=== PATIENT | male | born 1950 | race Caucasian/White ===

== ENCOUNTER 2018-08-12 20:33 | Inpatient (IN) | payer OTHER, MEDICARE ==
--- NOTE | 2018-08-12 21:02 | ED ---
Chest Pain HPI - General Chief Complaint: Chest Pain Stated Complaint: Chest Pain Time Seen by Provider: 08/12/18 20:44 Source: patient, family Mode of arrival: wheelchair Limitations: no limitations - History of Present Illness Initial Comments: Pamela a 68-year-old gentleman with a history of hypertension who presents to the emergency department today for evaluation of chest pain that occurred earlier in the day. Patient reports that between 4:30 and 5 PM this afternoon he was putting one in the wood stove. Patient reports that after lifting a piece of wood he felt a dull pain in his chest radiating down his left arm. He reports that this was unlike any muscular pain he has ever experienced. Patient describes it as a discomfort in his chest. He reports it was 1 the worse pains he's ever experienced. Patient went in the house took 2 Advil and laid down. At that time the pain resolved. When his returned home he told her about the pain and she insisted that he come to the ER for evaluation. Upon her arrival the patient is chest pain-free. Patient reports the pain occurred with exertion, is pressure-like, radiated down the left arm, was associated with lightheadedness but no shortness of breath or diaphoresis. She has a history of hypertension. No known history of coronary artery disease. He does report these undergone a thorough cardiovascular workup in the distant past including stress test and catheterization in which she was told some of his smaller vessels were "kinked" but he did not have any intervention at that time. - Related Data Home Medications Medication Instructions Recorded Confirmed Allopurinol [Zyloprim] 300 mg PO DAILY 08/12/18 08/12/18 Clonidine (Unknown) 1 tab PO ONCE 08/12/18 Ibuprofen [Advil] 400 mg PO Q8HR 08/12/18 08/12/18 Indomethacin [Indocin] 50 mg PO TID 08/12/18 08/12/18 Lisinopril 20 mg PO DAILY 08/12/18 08/12/18 Metoprolol (Unknown) 1 tab PO ONCE 08/12/18 Multivitamins, Thera [Multivitamin 1 tab PO DAILY 08/12/18 08/12/18 (formulary)] Niacin [Slo-Niacin] 500 mg PO BID 08/12/18 08/12/18 Pravastatin Sodium [Pravachol] 80 mg PO HS 08/12/18 08/12/18 amLODIPine [Norvasc] 5 mg PO TID 08/12/18 08/12/18 glipiZIDE [Glucotrol] 10 mg PO BID 08/12/18 08/12/18 metFORMIN HCL 1,000 mg PO BID 08/12/18 08/12/18 Allergies Allergy/AdvReac Type Severity Reaction Status Date / Time No Known Allergies Allergy Verified 08/12/18 21:28 Review of Systems ROS Statement: Those systems with pertinent positive or pertinent negative responses have been documented in the HPI. ROS Other: All systems not noted in ROS Statement are negative. EKG Findings - EKG Comments: EKG Findings:: EKG obtained at 8:51 PM, rate is 80, rhythm is sinus, there is a right bundle branch block, W[place] is 148, QRS 140, QTC 484. No acute ST elevations or depressions no evidence of acute ischemia or infarction. Past Medical History Past Medical History: Hypertension History of Any Multi-Drug Resistant Organisms: None Reported Past Surgical History: Tonsillectomy Past Psychological History: No Psychological Hx Reported Smoking Status: Never smoker Past Alcohol Use History: None Reported Past Drug Use History: None Reported General Exam - General Exam Comments Initial Comments: Physical Exam GENERAL: Patient is well-developed and well-nourished. Patient is nontoxic and well- hydrated and is in no distress. HENT: Normocephalic, Atraumatic. Poor dentition EYES: PERRL, EOMI PULMONARY: Unlabored respirations. No audible rales rhonchi or wheezing was noted. CARDIOVASCULAR: There is a regular rate and rhythm without any murmurs gallops or rubs. Warm and well-perfused extremity, radial pulses strong and equal bilaterally ABDOMEN: Soft and nontender with normal bowel sounds. No pulsatile abdominal mass SKIN: Skin is clear with no lesions or rashes and otherwise unremarkable. : Deferred NEUROLOGIC: Patient is alert and oriented x3. Moving all extremities spontaneously MUSCULOSKELETAL: Normal extremities with adequate strength and full range of motion. No lower extremity swelling or edema. No calf tenderness. PSYCHIATRIC: Normal psychiatric evaluation. Limitations: no limitations Limitations: no limitations Course Vital Signs 08/12/18 08/12/18 20:38 21:36 Temperature 97.9 F Pulse Rate 88 73 Respiratory 20 20 Rate Blood Pressure 165/93 152/99 O2 Sat by Pulse 97 96 Oximetry Chest Pain MDM - MDM The patient was seen and evaluated history was obtained from the patient and family at bedside [id number] male with a history of hypertension who presents with exertional chest pain occurring earlier in the day. Pain resolved with rest. This history is concerning for cardiac etiology of pain. A cardiac workup was ordered. EKG with no acute findings Labs reveal hyperglycemia, troponin is minimally elevated but still within normal limits at this time I recommend that we continue trending troponin, place the patient in observation for continued monitoring with a consult cardiology. Patient is agreeable to this plan. Admission orders were placed. Disposition Clinical Impression: Chest pain Disposition: ADMITTED IP TO THIS HOSP
[2018-08-12] MEDS ORDERED: ASPIRIN 81 MG PO STA (21:21)
[2018-08-12 21:26] LABS: Basophils % (A) 1 %; Eosinophils # (A) 0.2 k/uL (0-0.7); Eosinophils % (A) 2 %; HCT 44.5 % (39.0-53.0); HGB 14.7 gm/dL (13.0-17.5); Lymphocytes # (A) 2.1 k/uL (1.0-4.8); Lymphocytes % (A) 22 %; MCH 30.3 pg (25.0-35.0); Mean Platelet Volume 7.1; Monocytes # (A) 0.4 k/uL (0-1.0); Monocytes % (A) 5 %; Neutrophils # (A) 6.7 k/uL (1.3-7.7); Neutrophils % (A) 70 %; Platelet Count 293 k/uL (150-450); RBC 4.83 m/uL (4.30-5.90); RDW 12.9 % (11.5-15.5); WBC 9.6 k/uL (3.8-10.6)
[2018-08-12 21:37] LABS: ALT 30 U/L (21-72); AST 31 U/L (17-59); Albumin 4.2 g/dL (3.5-5.0); Alkaline Phosphatase 100 U/L (38-126); Anion Gap 11 mmol/L; Blood Urea Nitrogen 20 mg/dL (9-20); Calcium 9.9 mg/dL (8.4-10.2); Carbon Dioxide 26 mmol/L (22-30); Chloride 101 mmol/L (98-107); Glucose 281 mg/dL (74-99); Magnesium 1.4 mg/dL (1.6-2.3); Partial Thromboplastin Time 24.4 sec (22.0-30.0); Potassium 4.4 mmol/L (3.5-5.1); Prothrombin Time 10.2 sec (9.0-12.0); Sodium 138 mmol/L (137-145); Total Bilirubin 0.4 mg/dL (0.2-1.3); Total Protein 7.8 g/dL (6.3-8.2)
--- NOTE | 2018-08-12 21:40 | XR ---
EXAMINATION TYPE: XR chest 2V DATE OF EXAM: 08/12/2018 COMPARISON: None HISTORY: Chest pain TECHNIQUE: Frontal and lateral views of the chest are obtained. FINDINGS: There is no heart failure nor confluent pneumonic infiltrate. Costophrenic angles are jony r. There are chest leads. Heart size is normal. There is 1 cm nodular density over the right mid lung field. This is relatively dense and could be a granuloma. IMPRESSION: Right pulmonary nodular density could be a granuloma. Normal heart. No pulmonary consoli dation or heart failure. Recommend comparison with old exam. The old exam of 01/23/1711 is not availab le for comparison.
[2018-08-12 21:53] LABS: Creatine Kinase MB 0.6 ng/mL (0.0-2.4); Troponin I 0.031 ng/mL (0.000-0.034)
[2018-08-12] MEDS ORDERED: NITROGLYCERIN SL TABS 0.4 MG TAB SUBLINGUAL PRN (22:10)
[2018-08-12] MEDS ORDERED: Magnesium Replacement Protocol 1 EACH MISC MISCELLANE PRN (23:35)
[2018-08-12] MEDS: MAGNESIUM SULFATE-D5W PMX 1 GM in DEXTROSE/WATER 1 100ML.BAG IVPB SCH (23:42)
[2018-08-13] MEDS: MAGNESIUM SULFATE-D5W PMX 1 GM in DEXTROSE/WATER 1 100ML.BAG IVPB SCH ×2 (00:39→02:08)
[2018-08-13 02:14] LABS: Hemoglobin A1C 7.4 % (4.0-6.0)
[2018-08-13 03:43] LABS: Cholesterol 136 mg/dL (<200); HDL Cholesterol 29 mg/dL (40-60); Triglycerides 403 mg/dL (<150)
[2018-08-13 04:03] LABS: Creatine Kinase MB 1.1 ng/mL (0.0-2.4)
[2018-08-13 04:05] LABS: Troponin I 0.119 ng/mL (0.000-0.034)
[2018-08-13] MEDS ORDERED: HEPARIN SODIUM,PORCINE 5,000 UNIT/ML 1 ML VIAL IV ONE (04:37)
[2018-08-13] MEDS ORDERED: HEPARIN SODIUM,PORCINE 5,000 UNIT/ML 1 ML VIAL IV PRN (04:37)
[2018-08-13] MEDS ORDERED: HEPARIN SOD,PORK IN 0.45% NACL 25,000 UNIT in 0.45% NACL 1 500ML.BAG IV SCH (04:45)
[2018-08-13 05:20] LABS: Glucose,Whole Blood 140 mg/dL (75-99)
[2018-08-13] MEDS: INSULIN ASPART 100 UNIT/ML 1 ML 10 ML VIAL SQ SCH ×4 (05:28→21:06)
[2018-08-13 07:32] LABS: Basophils # (A) 0.1 k/uL (0-0.2); Basophils % (A) 1 %; Eosinophils # (A) 0.3 k/uL (0-0.7); Eosinophils % (A) 4 %; HCT 41.6 % (39.0-53.0); HGB 13.4 gm/dL (13.0-17.5); Lymphocytes # (A) 2.6 k/uL (1.0-4.8); Lymphocytes % (A) 37 %; MCH 30.3 pg (25.0-35.0); MCHC 32.2 g/dL (31.0-37.0); MCV 94.1 fL (80.0-100.0); Mean Platelet Volume 7.7; Monocytes # (A) 0.6 k/uL (0-1.0); Monocytes % (A) 8 %; Neutrophils # (A) 3.4 k/uL (1.3-7.7); Neutrophils % (A) 49 %; Platelet Count 264 k/uL (150-450); RBC 4.42 m/uL (4.30-5.90); WBC 7.1 k/uL (3.8-10.6)
[2018-08-13 07:37] LABS: Anion Gap 10 mmol/L; Blood Urea Nitrogen 17 mg/dL (9-20); Calcium 9.4 mg/dL (8.4-10.2); Carbon Dioxide 24 mmol/L (22-30); Chloride 105 mmol/L (98-107); Glucose 147 mg/dL (74-99); Potassium 4.2 mmol/L (3.5-5.1); Sodium 139 mmol/L (137-145)
--- NOTE | 2018-08-13 08:39 | P.CRDCN ---
History of Present Illness Consult date: 08/13/18 Requesting physician: Inderjit Lynne Reason for Consult (text): Chest pain Chief complaint: Chest and left arm pain History of present illness: This is a pleasant 68-year-old gentleman with past medical history of hypertension, diabetes and hyperlipidemia as well as previous stroke with no residual deficits. Family history of CAD, his father had CABG in his 50s and due to an abdominal aortic aneurysm at the age of 61. Patient did have prior cardiac workup about 20-25 years ago due to an abnormal EKG. At that time underwent stress testing and subsequent cardiac catheterization with no intervention. Presented to the emergency department with complaints of chest and left arm discomfort. He was cutting wood yesterday around 4:30 or 5: 00pm developed an aching sensation in his chest and down his left arm. He also had some lightheadedness. He stopped, took some Advil and rested pain was relieved. His came home around 6:00pm and at that time he got up developed more discomfort in his left arm and decided to come to the emergency department. EKG on admission showed right bundle branch block with possible prior lateral and inferior infarct. Chest x-ray showed right pulmonary nodular density could be granuloma, no pulmonary consolidation or heart failure. Initial labs showed white blood cell count 9600, hemoglobin 14.7, potassium 4.4 , BUN 20, creatinine 0.79, magnesium 1.4 and initial troponin of 0.031. Subsequent troponin came back to be elevated at 0.119. Upon examination this morning, patient is resting comfortably in bed. Feeling quite a bit better. Denies further complaints of chest discomfort. Denies shortness of breath, palpitations, or syncope. Past Medical History Past Medical History: CVA/TIA, Diabetes Mellitus, Hyperlipidemia, Hypertension History of Any Multi-Drug Resistant Organisms: None Reported Past Surgical History: Hernia Repair, Tonsillectomy Past Psychological History: No Psychological Hx Reported Smoking Status: Never smoker Past Alcohol Use History: None Reported Past Drug Use History: None Reported - Past Family History Mother Additional Family Medical History / Comment(s): brain anyrusm Father Family Medical History: Hyperlipidemia Additional Family Medical History / Comment(s): of brain anyrusm, heart issues Medications and Allergies Home Medications Medication Instructions Recorded Confirmed Type Allopurinol [Zyloprim] 300 mg PO DAILY 08/12/18 08/12/18 History Ibuprofen [Advil] 400 mg PO Q8HR 08/12/18 08/12/18 History Indomethacin [Indocin] 50 mg PO TID 08/12/18 08/12/18 History Lisinopril 20 mg PO DAILY 08/12/18 08/12/18 History Multivitamins, Thera [Multivitamin 1 tab PO DAILY 08/12/18 08/12/18 History (formulary)] Niacin [Slo-Niacin] 500 mg PO BID 08/12/18 08/12/18 History Pravastatin Sodium [Pravachol] 80 mg PO HS 08/12/18 08/12/18 History amLODIPine [Norvasc] 5 mg PO TID 08/12/18 08/12/18 History glipiZIDE [Glucotrol] 10 mg PO BID 08/12/18 08/12/18 History metFORMIN HCL 1,000 mg PO BID 08/12/18 08/12/18 History Metoprolol Tartrate [Lopressor] 25 mg PO BID 08/13/18 08/13/18 History cloNIDine HCL [Catapres] 0.2 mg PO BID 08/13/18 08/13/18 History Allergies Allergy/AdvReac Type Severity Reaction Status Date / Time No Known Allergies Allergy Verified 08/13/18 00:08 Physical Exam Vitals: Vital Signs Temp Pulse Pulse Resp BP BP Pulse Ox 08/13/18 08:00 97.6 F 59 L 16 148/88 95 08/13/18 05:26 96.8 F L 56 L 18 149/95 98 08/13/18 04:00 98.3 F 59 L 18 152/84 99 08/13/18 00:00 97.8 F 58 L 18 151/83 96 08/12/18 23:25 98.0 F 08/12/18 23:00 61 18 126/81 99 08/12/18 21:36 73 20 152/99 96 08/12/18 20:38 97.9 F 88 20 165/93 97 Intake and Output 08/12/18 08/13/18 08/13/18 22:59 06:59 14:59 Other: Voiding Method Toilet Toilet # Voids 1 Weight 111.402 kg 89.4 kg PHYSICAL EXAMINATION: HEENT: Head is atraumatic, normocephalic. Pupils equal, round. Neck is supple. There is no elevated jugular venous pressure. No bruit. HEART EXAMINATION: Heart sounds regular, S1 and S2 with a systolic ejection murmur at the base. CHEST EXAMINATION: Lungs are clear to auscultation and precussion. No chest wall tenderness is noted on palpation or with deep breathing. ABDOMEN: Soft, nontender. Bowel sounds are heard. No organomegaly noted. EXTREMITIES: 2+ peripheral pulses with no evidence of peripheral edema and no calf tenderness noted. NEUROLOGIC patient is awake, alert and oriented x3. . Results 08/13/18 03:00 08/13/18 03:00 Cardiac Enzymes 08/12/18 08/12/18 08/13/18 Range/Units 21:13 21: 03:00 AST 31 (17-59) U/L CK-MB (CK-2) 0.6 1.1 (0.0-2.4) ng/mL Troponin I 0.031 0.119 H* (0.000-0.034) ng/mL Coagulation 08/12/18 Range/Units 21:13 PT 10.2 (9.0-12.0) sec APTT 24.4 (22.0-30.0) sec Lipids 08/13/18 Range/Units 03:00 Triglycerides 403 H (<150) mg/dL Cholesterol 136 (<200) mg/dL HDL Cholesterol 29 L (40-60) mg/dL CBC 08/12/18 08/13/18 Range/Units 21:13 03:00 WBC 9.6 7.1 (3.8-10.6) k/uL RBC 4.83 4.42 (4.30-5.90) m/uL Hgb 14.7 13.4 (13.0-17.5) gm/dL Hct 44.5 41.6 (39.0-53.0) % Plt Count 293 264 (150-450) k/uL Comprehensive Metabolic Panel 08/12/18 08/13/18 Range/Units 21:13 03:00 Sodium 138 139 (137-145) mmol/L Potassium 4.4 4.2 (3.5-5.1) mmol/L Chloride 101 105 (98-107) mmol/L Carbon Dioxide 26 24 (22-30) mmol/L BUN 20 17 (9-20) mg/dL Creatinine 0.79 0.79 (0.66-1.25) mg/dL Glucose 281 H 147 H (74-99) mg/dL Calcium 9.9 9.4 (8.4-10.2) mg/dL AST 31 (17-59) U/L ALT 30 (21-72) U/L Alkaline Phosphatase 100 (38-126) U/L Total Protein 7.8 (6.3-8.2) g/dL Albumin 4.2 (3.5-5.0) g/dL Current Medications Generic Name Dose Route Start Last Admin Trade Name Freq PRN Reason Stop Dose Admin Aspirin 325 mg 08/13/18 09:00 Aspirin PO DAILY [facility] Heparin Sodium (Porcine) 0 unit 08/13/18 04:37 Heparin IV PER PROTOCOL PRN Low PTT Protocol Heparin Sodium/Sodium Chloride 500 mls @ 17.82 mls/hr 08/13/18 04:45 05:15 25,000 unit/ Sodium Chloride IV 8 units/kg/hr .Q24H VENKAT 17.82 mls/hr Administration Protocol 8 UNITS/KG/HR Insulin Aspart 0 unit 08/13/18 07:30 08/13/18 05:28 Novolog SQ Not Given ACHS [facility] Protocol Miscellaneous Information 1 each 08/12/18 23:35 Magnesium Per Protocol MISCELLANE DAILY PRN Per Protocol Protocol Nitroglycerin 0.4 mg 08/12/18 22:10 Nitrostat SUBLINGUAL Q5M PRN Chest Pain Intake and Output 08/12/18 08/13/18 08/13/18 22:59 06:59 14:59 Other: Voiding Method Toilet Toilet # Voids 1 Weight 111.402 kg 89.4 kg 08/13/18 03:00 08/13/18 03:00 Assessment and Plan Assessment: #1 non-ST elevation PR #2 essential hypertension #3 diabetes mellitus type 2 #4 dyslipidemia #5 prior history of stroke Plan: From Cardiology's perspective, we will obtain a 2-D echo with doppler. Obtain 3rd troponin. Hold metformin. Resume metoprolol and lisinopril as well as pravastatin. Patient advised to undergo cardiac catheterization which will be done to day by Dr. Ngo. He was advised benefits and risks of the procedure and has agreed to proceed. Further recommendations to follow based on findings of coronary angiogram. CPR INSTRUCTOR note has been reviewed, I agree with a documented findings and plan of care. Patient was seen and examined.
[2018-08-13] MEDS ORDERED: LISINOPRIL 20 MG TAB PO SCH (09:00)
[2018-08-13] MEDS ORDERED: ASPIRIN 325 MG TAB PO SCH (09:00)
[2018-08-13] MEDS ORDERED: SODIUM CHLORIDE 0.9% 1,000 ML in EMPTY BAG 1 BAG IV ONE (09:22)
[2018-08-13] MEDS ORDERED: ATORVASTATIN 80 MG TAB PO STA (09:22)
[2018-08-13] MEDS ORDERED: ALPRAZolam 0.25 MG TAB PO PRN (09:22)
[2018-08-13] MEDS ORDERED: ASPIRIN 325 MG TAB PO STA (09:22)
[2018-08-13] MEDS ORDERED: ALPRAZolam 0.5 MG TAB PO PRN (09:22)
[2018-08-13] MEDS ORDERED: NITROGLYCERIN SL TABS 0.4 MG TAB SUBLINGUAL PRN ×2 (09:22→13:36)
[2018-08-13] MEDS: METOPROLOL TARTRATE 25 MG TAB PO SCH ×2 (09:33→20:04)
--- NOTE | 2018-08-13 10:08 | P.HPIM ---
History of Present Illness 59-year-old pleasant gentleman with history of coronary disease CABG in the past came in with complaints of mainly left arm pain sharp in nature unable to make fist. Pain is moderate in severity which was partially at least by ibuprofen, started having this pain again and it radiates to the chest because of which patient came to the ER patient denied any fever chills diaphoresis nonpleuritic pain. Patient had some lightheadedness briefly. Patient pain is continuous still has this pain. Patient EKG showed right bundle branch block which is probably old. Patient denied any cough. Patient is found to have mildly elevated troponin of 0.031 and 0.119 there is no other clear explanation for this because of which patient was started on IV heparin is planned ago cardiac catheterization today. Patient has other risk factors including type 2 diabetes mellitus hypertension and hyperlipidemia. Never smoked. Family history of coronary disease Review of Systems REVIEW OF SYSTEMS: CONSTITUTIONAL: No fever, no malaise, no fatigue. HEENT: No recent visual problems or hearing problems. Denied any sore throat. CARDIOVASCULAR: No PND, no palpitations, no syncope. PULMONARY: No shortness of breath, no cough, no hemoptysis. GASTROINTESTINAL: No diarrhea, no nausea, no vomiting, no abdominal pain. Normoactive bowel sounds. NEUROLOGICAL: No headaches, no weakness, no numbness. HEMATOLOGICAL: Denies any bleeding or petechiae. GENITOURINARY: Denies any burning micturition, frequency, or urgency. MUSCULOSKELETAL/RHEUMATOLOGICAL: Denies any joint pain, swelling, or any muscle pain. ENDOCRINE: Denies any polyuria or polydipsia. The rest of the 14-point review of systems is negative. Past Medical History Past Medical History: CVA/TIA, Diabetes Mellitus, Hyperlipidemia, Hypertension History of Any Multi-Drug Resistant Organisms: None Reported Past Surgical History: Hernia Repair, Tonsillectomy Past Psychological History: No Psychological Hx Reported Smoking Status: Never smoker Past Alcohol Use History: None Reported Past Drug Use History: None Reported - Past Family History Mother Additional Family Medical History / Comment(s): brain anyrusm Father Family Medical History: Hyperlipidemia Additional Family Medical History / Comment(s): of brain anyrusm, heart issues Medications and Allergies Home Medications Medication Instructions Recorded Confirmed Type Allopurinol [Zyloprim] 300 mg PO DAILY 08/12/18 08/12/18 History Ibuprofen [Advil] 400 mg PO Q8HR 08/12/18 08/12/18 History Indomethacin [Indocin] 50 mg PO TID 08/12/18 08/12/18 History Lisinopril 20 mg PO DAILY 08/12/18 08/12/18 History Multivitamins, Thera [Multivitamin 1 tab PO DAILY 08/12/18 08/12/18 History (formulary)] Niacin [Slo-Niacin] 500 mg PO BID 08/12/18 08/12/18 History Pravastatin Sodium [Pravachol] 80 mg PO HS 08/12/18 08/12/18 History amLODIPine [Norvasc] 5 mg PO TID 08/12/18 08/12/18 History glipiZIDE [Glucotrol] 10 mg PO BID 08/12/18 08/12/18 History metFORMIN HCL 1,000 mg PO BID 08/12/18 08/12/18 History Metoprolol Tartrate [Lopressor] 25 mg PO BID 08/13/18 08/13/18 History cloNIDine HCL [Catapres] 0.2 mg PO BID 08/13/18 08/13/18 History Allergies Allergy/AdvReac Type Severity Reaction Status Date / Time No Known Allergies Allergy Verified 08/13/18 00:08 Physical Exam Vitals: Vital Signs Temp Pulse Pulse Resp BP BP Pulse Ox 08/13/18 08:00 97.6 F 59 L 16 148/88 95 08/13/18 05:26 96.8 F L 56 L 18 149/95 98 08/13/18 04:00 98.3 F 59 L 18 152/84 99 08/13/18 00:00 97.8 F 58 L 18 151/83 96 08/12/18 23:25 98.0 F 08/12/18 23:00 61 18 126/81 99 08/12/18 21:36 73 20 152/99 96 08/12/18 20:38 97.9 F 88 20 165/93 97 Intake and Output 08/12/18 08/13/18 08/13/18 22:59 06:59 14:59 Other: Voiding Method Toilet Toilet # Voids 1 Weight 111.402 kg 89.4 kg PHYSICAL EXAMINATION: GENERAL: The patient is alert and oriented x3, not in any acute distress. Well developed, well nourished. HEENT: Pupils are round and equally reacting to light. EOMI. No scleral icterus. No conjunctival pallor. Normocephalic, atraumatic. No pharyngeal erythema. No thyromegaly. CARDIOVASCULAR: S1 and S2 present. No murmurs, rubs, or gallops. PULMONARY: Minimal crackles in the left lower lung bases. ABDOMEN: Soft, nontender, nondistended, normoactive bowel sounds. No palpable organomegaly. MUSCULOSKELETAL: No joint swelling or deformity. EXTREMITIES: No cyanosis, clubbing, or pedal edema. NEUROLOGICAL: Gross neurological examination did not reveal any focal deficits. SKIN: No rashes. Results CBC & Chem 7: 08/13/18 03:00 08/13/18 03:00 Labs: Abnormal Lab Results - Last 24 Hours (Table) 08/12/18 08/12/18 08/13/18 Range/Units 21:13 21:13 03:00 Glucose 281 H (74-99) mg/dL POC Glucose (mg/dL) (75-99) mg/dL Hemoglobin A1c 7.4 H (4.0-6.0) % Magnesium 1.4 L (1.6-2.3) mg/dL Troponin I 0.119 H* (0.000-0.034) ng/mL Triglycerides (<150) mg/dL HDL Cholesterol (40-60) mg/dL 08/13/18 08/13/18 08/13/18 Range/Units 03:00 03:00 03:00 Glucose 147 H (74-99) mg/dL POC Glucose (mg/dL) (75-99) mg/dL Hemoglobin A1c (4.0-6.0) % Magnesium 2.5 H (1.6-2.3) mg/dL Troponin I (0.000-0.034) ng/mL Triglycerides 403 H (<150) mg/dL HDL Cholesterol 29 L (40-60) mg/dL 08/13/18 Range/Units 05:18 Glucose (74-99) mg/dL POC Glucose (mg/dL) 140 H (75-99) mg/dL Hemoglobin A1c (4.0-6.0) % Magnesium (1.6-2.3) mg/dL Troponin I (0.000-0.034) ng/mL Triglycerides (<150) mg/dL HDL Cholesterol (40-60) mg/dL Thrombosis Risk Factor Assmnt - Choose All That Apply Each Risk Factor Represents 2 Points: Age 61-74 years Thrombosis Risk Factor Assessment Total Risk Factor Score: 2 Thrombosis Risk Factor Assessment Level: Low Risk Assessment and Plan Plan: -Chest pain: Non-ST elevation myocardial infarction cannot be ruled out symptomatology appears to be musculoskeletal but patient had elevated troponins cannot be explained by anything else because of which patient will undergo cardiac catheterization today. Patient the will be continued on antiplatelet therapy resumed most of his antihypertensive medications including beta juan. -CVAT in the past -Type 2 diabetes mellitus: Hold off oral hypoglycemic agents patient will be on sliding scale insulin -Hyperlipidemia Hypertension -Coronary artery disease in the past. -1 cm nodular lesion in the right lung which was evaluated as an outpatient in the past in my clinic and appeared to be benign
--- NOTE | 2018-08-13 10:13 | ECHOF ---
Referral Reason:NSTEMI MEASUREMENTS -------- HEIGHT: 172.7 cm WEIGHT: 89.4 kg BP: 148/88 RVIDd: 3.5 cm (< 3.3) IVSd: 1.3 cm (0.6 - 1.1) LVIDd: 5.0 cm (3.9 - 5.3) LVPWd: 1.1 cm (0.6 - 1.1) IVSs: 2.0 cm LVIDs: 3.5 cm LVPWs: 1.4 cm LA Diam: 4.0 cm (2.7 - 3.8) LAESV Index (A-L): 29.42 ml/m Ao Diam: 2.9 cm (2.0 - 3.7) AV Cusp: 1.5 cm (1.5 - 2.6) LA Diam: 4.2 cm (2.7 - 3.8) MV EXCURSION: 21.432 mm (> 18.000) MV EF SLOPE: 88 mm/s (70 - 150) EPSS: 0.4 cm MV E Ryan: 0.47 m/s MV DecT: 347 ms MV A Ryan: 0.98 m/s MV E/A Ratio: 0.48 RAP: 5.00 mmHg RVSP: 18.21 mmHg FINDINGS -------- Sinus rhythm. This was a technically adequate study. The left ventricular size is normal. There is mild concentric left ventricular hypertrophy. Overa ll left ventricular systolic function is low-normal with, an EF between 50 - 55 %. The right ventricle is normal in size. The left atrial size is normal. LA is midly dilated 29-33ml/m2. The right atrial size is normal. There is mild aortic valve sclerosis. There is no evidence of aortic regurgitation. Mild mitral annular calcification present. Mild mitral regurgitation is present. Mild tricuspid regurgitation present. There is no evidence of pulmonary hypertension. The right v entricular systolic pressure, as measured by Doppler, is 18.21mmHg. There is no pulmonic regurgitation present. The aortic root size is normal. There is no pericardial effusion. CONCLUSIONS -------- 1. The left ventricular size is normal. 2. There is mild concentric left ventricular hypertrophy. 3. Overall left ventricular systolic function is low-normal with, an EF between 50 - 55 %. 4. The right ventricle is normal in size. 5. The left atrial size is normal. 6. LA is midly dilated 29-33ml/m2. 7. The right atrial size is normal. 8. There is mild aortic valve sclerosis. 9. Mild mitral annular calcification present. 10. Mild mitral regurgitation is present. 11. Mild tricuspid regurgitation present. 12. There is no evidence of pulmonary hypertension. 13. The right ventricular systolic pressure, as measured by Doppler, is 18.21mmHg. 14. There is no pulmonic regurgitation present. 15. The aortic root size is normal. 16. There is no pericardial effusion. MEDICAL STENOGRAPHER: Darby Nolen RDCS
[2018-08-13 10:17] LABS: Creatine Kinase MB 2.4 ng/mL (0.0-2.4)
[2018-08-13 10:18] LABS: Troponin I 0.114 ng/mL (0.000-0.034)
[2018-08-13 11:05] LABS: Glucose,Whole Blood 146 mg/dL (75-99)
[2018-08-13] MEDS ORDERED: fentaNYL (PF) 50 MCG/ML 2 ML AMP IVP ONE (12:23)
[2018-08-13] MEDS ORDERED: IV FLUID CONTINUATION 750 ML IV ONE (12:23)
[2018-08-13] MEDS ORDERED: LIDOCAINE 1% INJ 10MG/ML (20 ML MDV) SQ ONE (12:42)
[2018-08-13] MEDS ORDERED: VERAPAMIL SYRINGE (5 MG/10 ML) INTRAARTER ONE (12:45)
[2018-08-13] MEDS ORDERED: MIDAZOLAM 2 MG/2 ML VIAL IV ONE (12:47)
[2018-08-13] MEDS ORDERED: BIVALIRUDIN 250 MG in SODIUM CHLORIDE 0.9% 50 ML IV ONE (12:55)
[2018-08-13] MEDS ORDERED: BIVALIRUDIN BOLUS 250 MG/50 ML IV ONE (12:55)
[2018-08-13] MEDS ORDERED: TICAGRELOR 90 MG TAB PO ONE (12:57)
[2018-08-13] MEDS ORDERED: IOPAMIDOL-370 125ML BTL INJ ONE (13:07)
[2018-08-13] MEDS ORDERED: IOPAMIDOL-370 50ML BTL INJ ONE (13:13)
[2018-08-13] MEDS ORDERED: ATROPINE SULFATE 0.1 MG/ML 10ML SYRINGE IV PRN (13:36)
[2018-08-13] MEDS ORDERED: ZOLPIDEM 5 MG TAB PO PRN (13:36)
[2018-08-13] MEDS ORDERED: MAG HYDROX/AL HYDROX/SIMETH 30 ML CUP PO PRN (13:36)
[2018-08-13] MEDS ORDERED: RX INFO: IV CONTRAST WAS GIVEN 1 EACH MISC MISCELLANE PRN (13:36)
[2018-08-13] MEDS ORDERED: SODIUM CHLORIDE 0.9% 1,000 ML IV SCH (13:45)
[2018-08-13 14:58] VITALS: BMI 29.9
--- NOTE | 2018-08-13 15:08 | CC ---
CARDIAC CATHETERIZATION REPORT Mr. Guzmán is a 68-year-old male with known history of hypertension, hyperlipidemia, diabetes mellitus, who presented to the hospital with symptoms of chest and arm discomfort and had mild elevation of troponin consistent with non ST-segment elevation myocardial infarction. In view of that, recommendation made regarding cardiac catheterization, the procedures, risks and complications were discussed with the patient who is in full understanding and agreement. PROCEDURE: Patient was brought to the garage laborer in a fasting semi-sedated state after receiving Versed and fentanyl and achieving moderate conscious sedated state. Using Xylocaine anesthesia and Seldinger technique, a 6-Turkish sheath was introduced in the right radial artery. Selective right and left angiography performed using 5-Turkish 3.5 bend right and left Fay catheter, multiple views of the coronary artery including hemiaxial views were obtained. Following that 5-Turkish tight pigtail catheter site following that angioplasty and stenting was performed. Following that 5-Turkish tight pigtail catheter was introduced in the left ventricle and a 30 degree TADEO view of the left ventricle was obtained. Following that, catheter and sheath were removed. Hemostasis was obtained with deployment of a TR band. There was no immediate complication. Patient is returned to his room in stable condition. Of note, patient received her intra-arterial verapamil as well as Angiomax during the intervention. FINDINGS: FLUOROSCOPY: There was severe calcification involving all the coronary arteries. LEFT MAIN: This is a large-sized vessel, trifurcating to the left anterior descending artery, left circumflex and ramus intermedius. The left main coronary artery has no evidence of high-grade stenosis. LEFT ANTERIOR DESCENDING ARTERY: This is a large-sized vessel, reaching toward the apex with a wraparound apex segment, giving rise to a large diagonal branch. Left anterior descending artery is diffusely disease throughout the vessel, has an area of stenosis 20% - 30% proximal, another 40% in the mid segment. The rest of the vessel has no high-grade stenosis. LEFT CIRCUMFLEX: This is a nondominant vessel, giving rise to 2 obtuse marginal branch prior to the takeoff of the second obtuse marginal branch. There is a distal obtuse marginal branch. There is 90% stenosis. The rest of the vessel has diffuse intimal disease without any evidence of high-grade stenosis. RIGHT CORONARY ARTERY: This is a large dominant vessel bifurcating distally into PDA and posterolateral single branches. The right coronary artery in mid-segment has an area of stenosis of about 40%. The rest of the vessel has no high-grade stenosis. RAMUS INTERMEDIUS: This is a large-sized vessel that has no evidence of high-grade stenosis. LEFT VENTRICULOGRAM: Left ventriculogram was performed in 30 degree TADEO view and revealed apical inferior wall hypokinesis. Ejection fraction is 50%. There was no significant mitral regurgitation. HEMODYNAMICS: There was no gradient across the aortic valve. The left ventricular end-diastolic pressure was 8-12 mmHg. CONCLUSION: 1. Heavily calcified coronary arteries. 2. Significant disease in the distal left circumflex. 3. Moderate disease involving the left anterior descending artery and the right coronary artery. 4. Minimally impaired left ventricular systolic function. RECOMMENDATION: In view of finding anatomy, I recommend proceeding with angioplasty and stenting. The procedures, risks and complications were discussed with the patient who is in full understanding and agreement. MMRUBEN / JEAN-CLAUDE: [id number] /
--- NOTE | 2018-08-13 15:14 | PTCA ---
PERCUTANEOUSTRANS CORORONARY ANGIOGRAPHY Mr. Guzmán is a 68-year-old male with known history of hypertension, hyperlipidemia, and diabetes mellitus who presented with non ST-segment elevation myocardial infarction, underwent cardiac catheterization, was found to have heavily calcified coronary artery with significant disease involving the left circumflex. In view of that, recommendation made regarding angioplasty and stenting. The procedures, risks and complication were discussed with the patient who is in full understanding and agreement. PROCEDURE: A 6-Polish FL 3.5 guiding catheter was introduced into the system. After cannulating the left main, a 0.014 balanced medium weight J-wire was advanced across the lesion, positioned distally then a 2.75 x 12 mm Xience CR stent was deployed and post at 16 atmospheres. After the last inflation, after appropriate wait, the balloon and the guidewire were withdrawn back in the guiding catheter. Images were obtained and repeated. Those images reveal stable successful stenting. At that point, the guiding catheter, the balloon and the guidewire were removed. left ventriculogram was performed. Following that, the catheter and sheaths were removed. Hemostasis was obtained with deployment of a TR band. There was no immediate complication. Patient is returned to his room in stable condition. Of note, patient received Angiomax per protocol as well as oral loading dose of Brilinta. He had no chest discomfort or significant EKG changes with the inflation. RESULTS: Successful stenting of the distal left circumflex with reduction of stenosis from a 90% to 0%. RECOMMENDATION: Patient will be continued on aspirin, Brilinta, beta blockers and statin. The importance of dual antiplatelet treatment was discussed with the patient and his family who are in full understanding and agreement. Duration of procedure is 58 minutes. MMODL / IJN: [id number] /
[2018-08-13 16:33] LABS: Glucose,Whole Blood 157 mg/dL (75-99)
[2018-08-13] MEDS: LISINOPRIL 20 MG TAB PO SCH (20:04)
[2018-08-13] MEDS: cloNIDine HCL 0.1 MG TAB PO SCH (20:04)
[2018-08-13] MEDS: TICAGRELOR 90 MG TAB PO SCH (20:04)
[2018-08-13 20:51] LABS: Glucose,Whole Blood 192 mg/dL (75-99)
[2018-08-13] MEDS ORDERED: cloNIDine HCL 0.2 MG TAB PO SCH (21:00)
[2018-08-13] MEDS ORDERED: PRAVASTATIN SODIUM 80 MG TAB PO SCH (21:00)
[2018-08-13] MEDS ORDERED: ATORVASTATIN 80 MG TAB PO SCH (21:00)
[2018-08-14 05:20] LABS: Glucose,Whole Blood 180 mg/dL (75-99)
[2018-08-14] MEDS: INSULIN ASPART 100 UNIT/ML 1 ML 10 ML VIAL SQ SCH (06:15)
[2018-08-14 07:11] LABS: Anion Gap 12 mmol/L; Blood Urea Nitrogen 11 mg/dL (9-20); Calcium 9.9 mg/dL (8.4-10.2); Carbon Dioxide 24 mmol/L (22-30); Chloride 103 mmol/L (98-107); Glucose 164 mg/dL (74-99); Potassium 4.6 mmol/L (3.5-5.1); Sodium 139 mmol/L (137-145)
[2018-08-14] MEDS: LISINOPRIL 20 MG TAB PO SCH (08:02)
[2018-08-14] MEDS: cloNIDine HCL 0.1 MG TAB PO SCH (08:02)
[2018-08-14] MEDS: METOPROLOL TARTRATE 25 MG TAB PO SCH (08:02)
[2018-08-14] MEDS: TICAGRELOR 90 MG TAB PO SCH (08:02)
[2018-08-14 08:16] VITALS: RESP 18; TEMP 98.2
--- NOTE | 2018-08-14 08:53 | PN ---
PROGRESS NOTE Mr. Guzmán is a 68-year-old male who presented with rdq-LE-drepcoq elevation myocardial infarction. He has history of hypertension, hyperlipidemia, and diabetes mellitus. Underwent cardiac catheterization, was found to have critical stenosis involving the distal left circumflex underwent stenting of that vessel. He is doing well this morning. His breathing stable. He is denying any chest pain. No dizziness. No palpitation. He is ambulating without difficulty. He continues to be on aspirin once a day, Brilinta at 90 mg twice a day, Lipitor mg daily, clonidine 0.1 mg twice a day, lisinopril 20 mg twice a day, metoprolol tartrate 25 mg twice a day. PHYSICAL EXAMINATION: Blood pressure 153/80 with the heart rate in the 80s. LUNGS: Clear. HEART: Regular rate and rhythm. S1, S2. No S3. No rub. ABDOMEN: Soft, nontender. EXTREMITIES: No edema. Right radial pulse intact. LAB DATA: Potassium of 4.6. BUN and creatinine of 11 and 0.67. IMPRESSION: 1. Status post lmr-EN-gstgohe elevation myocardial infarction with stenting of the left circumflex. 2. Hypertension. 3. Hyperlipidemia. 4. Diabetes mellitus. RECOMMENDATION: From the cardiac standpoint, I will continue present therapy, increase his level activity. He should be able to be discharged home today and followed as an outpatient. MMODL / IJN: [id number] /
[2018-08-14] MEDS ORDERED: ASPIRIN 81 MG PO SCH (09:00)
[2018-08-14] MEDS ORDERED: amLODIPine 5 MG TAB PO SCH (09:00)
[2018-08-14] MEDS ORDERED: HYDROCHLOROTHIAZIDE 25 MG TAB PO SCH (09:00)
--- NOTE | 2018-08-14 10:24 | P.DS ---
Providers Date of admission: 08/13/18 13:48 Attending physician: Inderjit Lynne Consults: 08/12/18 22:10 Consult Physician Urgent Consulting Provider: [facility] Consult Reason/Comments: chest pain Do you want consulting provider notified?: Yes, Notify in am 08/13/18 13:36 Consult Physician Routine Consulting Provider: Austin Onofre Consult Reason/Comments: Post Interventional patient Do you want consulting provider notified?: Already Contacted Primary care physician: [facility] Course: 59-year-old pleasant gentleman with history of coronary disease CABG in the past came in with complaints of mainly left arm pain sharp in nature unable to make fist. Pain is moderate in severity which was partially at least by ibuprofen, started having this pain again and it radiates to the chest because of which patient came to the ER patient denied any fever chills diaphoresis nonpleuritic pain. Patient had some lightheadedness briefly. Patient pain is continuous still has this pain. Patient EKG showed right bundle branch block which is probably old. Patient denied any cough. Patient is found to have mildly elevated troponin of 0.031 and 0.119 there is no other clear explanation for this because of which patient was started on IV heparin is planned ago cardiac catheterization today. Patient has other risk factors including type 2 diabetes mellitus hypertension and hyperlipidemia. Never smoked. Family history of coronary disease 08/14/2018 Patient underwent cardiac catheterization and stenting of distal circumflex. Patient is clinically doing well will be discharged today. PHYSICAL EXAMINATION: GENERAL: The patient is alert and oriented x3, not in any acute distress. Well developed, well nourished. HEENT: Pupils are round and equally reacting to light. EOMI. No scleral icterus. No conjunctival pallor. Normocephalic, atraumatic. No pharyngeal erythema. No thyromegaly. CARDIOVASCULAR: S1 and S2 present. No murmurs, rubs, or gallops. PULMONARY: Chest is clear to auscultation, no wheezing or crackles. ABDOMEN: Soft, nontender, nondistended, normoactive bowel sounds. No palpable organomegaly. MUSCULOSKELETAL: No joint swelling or deformity. EXTREMITIES: No cyanosis, clubbing, or pedal edema. NEUROLOGICAL: Gross neurological examination did not reveal any focal deficits. SKIN: No rashes. Assessment and Plan Plan: -: Non-ST elevation myocardial infarction -CVA in the past -Type 2 diabetes mellitus: -Hyperlipidemia Hypertension -Coronary artery disease in the past. -1 cm nodular lesion in the right lung which was evaluated as an outpatient in the past in my clinic and appeared to be benign Plan - Discharge Summary New Discharge Prescriptions: No Action metFORMIN HCL 1,000 mg PO BID glipiZIDE [Glucotrol] 10 mg PO BID amLODIPine [Norvasc] 5 mg PO TID Pravastatin Sodium [Pravachol] 80 mg PO HS Niacin [Slo-Niacin] 500 mg PO BID Multivitamins, Thera [Multivitamin (formulary)] 1 tab PO DAILY Lisinopril 20 mg PO DAILY Indomethacin [Indocin] 50 mg PO TID Ibuprofen [Advil] 400 mg PO Q8HR Allopurinol [Zyloprim] 300 mg PO DAILY cloNIDine HCL [Catapres] 0.2 mg PO BID Metoprolol Tartrate [Lopressor] 25 mg PO BID Discharge Medication List Allopurinol [Zyloprim] 300 mg PO DAILY 08/12/18 [History] Ibuprofen [Advil] 400 mg PO Q8HR 08/12/18 [History] Indomethacin [Indocin] 50 mg PO TID 08/12/18 [History] Lisinopril 20 mg PO DAILY 08/12/18 [History] Multivitamins, Thera [Multivitamin (formulary)] 1 tab PO DAILY 08/12/18 [History ] Niacin [Slo-Niacin] 500 mg PO BID 08/12/18 [History] Pravastatin Sodium [Pravachol] 80 mg PO HS 08/12/18 [History] amLODIPine [Norvasc] 5 mg PO TID 08/12/18 [History] glipiZIDE [Glucotrol] 10 mg PO BID 08/12/18 [History] metFORMIN HCL 1,000 mg PO BID 08/12/18 [History] Metoprolol Tartrate [Lopressor] 25 mg PO BID 08/13/18 [History] cloNIDine HCL [Catapres] 0.2 mg PO BID 08/13/18 [History] Follow up Appointment(s)/Referral(s): Brit Ngo MD [STAFF PHYSICIAN] - 08/22/18 11:15 am [facility],Clinic [Primary Care Provider] - 1-2 days Patient Instructions/Handouts: *Surgery [facility] - After Heart Catheterization - Funeral Planner Instructions, Heart Healthy Diet (DC) Activity/Diet/Wound Care/Special Instructions: [place]ato $15 copay
[2018-08-14 11:18] LABS: Glucose,Whole Blood 163 mg/dL (75-99)
[2018-08-14 11:47] VITALS: BP 139/89; PULSE 62
== END 2018-08-14 12:46 | disposition home or self-care (01) | DRG 247 ==
LOC: EC 20:33 → 1SOBS 22:25 → INTOOBSV 22:25 → OBSVTOIN 22:25 → 3SCARD 08-13 05:06 → OBSVTOIN 08-13 13:48
PROVIDERS: ADMIT Internal Medicine; ATTEND Internal Medicine
PROC: B2111ZZ Fluoroscopy of Multiple Coronary Arteries using Low Osmolar Contrast (ICD-10-PCS; 2018-08-13)
PROC: B2151ZZ Fluoroscopy of Left Heart using Low Osmolar Contrast (ICD-10-PCS; 2018-08-13)
PROC: 4A023N7 Measurement of Cardiac Sampling and Pressure, Left Heart, Percutaneous Approach (ICD-10-PCS; principal; 2018-08-13 12:06)
PROC: 027034Z Dilation of Coronary Artery, One Artery with Drug-eluting Intraluminal Device, Percutaneous Approach (ICD-10-PCS; 2018-08-13 12:06)
DX: I21.4 Non-ST elevation (NSTEMI) myocardial infarction (principal); E11.65 Type 2 diabetes mellitus with hyperglycemia; E78.5 Hyperlipidemia, unspecified; I10 Essential (primary) hypertension; I25.10 Atherosclerotic heart disease of native coronary artery without angina pectoris; I25.2 Old myocardial infarction; I45.10 Unspecified right bundle-branch block; Z82.49 Family history of ischemic heart disease and other diseases of the circulatory system; Z86.73 Personal history of transient ischemic attack (TIA), and cerebral infarction without residual deficits; Z95.1 Presence of aortocoronary bypass graft; R91.1 Solitary pulmonary nodule; Z79.84 Long term (current) use of oral hypoglycemic drugs; Z79.899 Other long term (current) drug therapy; Z79.1 Long term (current) use of non-steroidal anti-inflammatories (NSAID)
CPT/HCPCS: 36415; 71046; 80048; 80053; 80061; 82550; 82553; 83036; 83735; 83880; 84484; 85025; 85347; 85610; 85730; 93005; 93306; 93458; 99285; C1874